=== PATIENT | female | born 1970 | race Caucasian/White ===

== ENCOUNTER 2018-08-10 22:36 | Inpatient (IN) | payer OTHER ==
[~2018-08-10] VITALS: Ht 160 cm; Wt 53.9 kg
[~2018-08-10 22:36] MED LIST: VALIUM5 MG PO
[2018-08-10 22:38] VITALS: BP 117/67
[2018-08-10] MEDS ORDERED: XANAX1 MG PO (23:08)
[2018-08-10] MEDS ORDERED: KLOR-CON 1010 MEQ PO (23:08)
[2018-08-10] MEDS ORDERED: ZINC30 M1 PO (23:09)
[2018-08-10] MEDS ORDERED: MAGOX 400400 MG PO (23:10)
[2018-08-10] MEDS ORDERED: B12 (23:10)
[2018-08-10 23:37] LABS: HEMATOCRIT 34.7 % (37.0-47.0); HEMOGLOBIN 11.5 gm/dL (12.0-15.0); MCHC 33.3 g/dL (28.0-37.0); MCV 78.3 fL (80.0-100.0); PLATELET COUNT 268 thou/uL (150-400); RBC 4.43 mil/uL (4.20-5.00); RDW 13.8 % (10.5-14.5); WBC 11.6 thou/uL (4.0-11.0)
[2018-08-10 23:45] LABS: ALBUMIN 3.8 g/dL (3.4-5.0); ANION GAP 11 mmol/L (7-16); BUN 13 mg/dL (7-18); CALCIUM 8.7 mg/dL (8.5-10.1); CHLORIDE 101 mmol/L (98-107); CO2 26 mmol/L (21-32); CREATININE 0.7 mg/dL (0.6-1.0); DIRECT BILIRUBIN < 0.1 mg/dL (<0.1-0.3); GLUCOSE 112 mg/dL (74-106); SGOT 20 U/L (15-37); SGPT 23 U/L (30-65); SODIUM 138 mmol/L (136-145); TOTAL BILIRUBIN 0.2 mg/dL (<0.1-1.0); TOTAL PROTEIN 7.1 g/dL (6.4-8.2)
[2018-08-10 23:47] LABS: AMP/METHAMP Negative (Negative); BARBITURATES Negative (Negative); BENZODIAZEPINES POSITIVE (Negative); COCAINE Negative (Negative); METHADONE Negative (Negative); OPIATES Negative (Negative); PCP Negative (Negative)
[2018-08-10 23:50] LABS: POTASSIUM 2.5 mmol/L (3.5-5.1)
[2018-08-11 00:15] LABS: ABSOLUTE NEUTROPHILS 4.3 thou/uL (1.4-8.2); ATYPICAL LYMPHS 6 %; PLATELET ESTIMATE NORMAL
[2018-08-11 01:49] VITALS: BP 109/72
[2018-08-11 01:50] VITALS: BP 112/75
[2018-08-11 05:26] VITALS: BP 130/79
[2018-08-11 05:56] LABS: HEMATOCRIT 33.7 % (37.0-47.0); HEMOGLOBIN 11.2 gm/dL (12.0-15.0); MCHC 33.4 g/dL (28.0-37.0); MCV 77.8 fL (80.0-100.0); RBC 4.33 mil/uL (4.20-5.00); RDW 13.4 % (10.5-14.5); WBC 11.5 thou/uL (4.0-11.0)
[2018-08-11 06:05] LABS: CALCIUM 8.5 mg/dL (8.5-10.1); CREATININE 0.6 mg/dL (0.6-1.0)
[2018-08-11 06:08] LABS: POTASSIUM 4.2 mmol/L (3.5-5.1)
[2018-08-11 07:39] VITALS: BP 108/67
[2018-08-11 16:28] VITALS: BP 118/67
[2018-08-11 19:15] VITALS: BP 114/64
[2018-08-12 04:05] VITALS: BP 92/53
[2018-08-12 05:57] LABS: ALBUMIN 3.3 g/dL (3.4-5.0); CALCIUM 8.8 mg/dL (8.5-10.1); CREATININE 0.6 mg/dL (0.6-1.0); PHOSPHORUS 4.2 mg/dL (2.5-4.9); POTASSIUM 4.1 mmol/L (3.5-5.1)
[2018-08-12 08:00] VITALS: BP 104/63
[2018-08-12 10:02] VITALS: BP 104/63
== END 2018-08-12 10:23 | disposition home or self-care (01) | DRG 641 ==
LOC: ER 22:36 → EROBS 08-11 00:37 → 4E 08-11 01:35
PROVIDERS: Emergency Medicine; Hospitalist; Nurse Practitioner Family
DX: E87.6 Hypokalemia (principal); T68.XXXA Hypothermia, initial encounter; F10.129 Alcohol abuse with intoxication, unspecified; F13.10 Sedative, hypnotic or anxiolytic abuse, uncomplicated; F41.9 Anxiety disorder, unspecified; G47.00 Insomnia, unspecified; G62.9 Polyneuropathy, unspecified; M19.90 Unspecified osteoarthritis, unspecified site; E53.8 Deficiency of other specified B group vitamins; E60 Dietary zinc deficiency; E61.0 Copper deficiency; Z88.6 Allergy status to analgesic agent; Z88.2 Allergy status to sulfonamides; Z88.8 Allergy status to other drugs, medicaments and biological substances; Z79.899 Other long term (current) drug therapy
CPT/HCPCS: 10084